=== PATIENT | female | born 1980 | race Caucasian/White ===

== ENCOUNTER → 2020-02-11 | Outpatient (CLI) | payer SELFPAY | LOC: CARD 08:36 | PROVIDERS: ATTEND Internal Medicine Cardiovascular Disease | DX: I35.1 Nonrheumatic aortic (valve) insufficiency (principal) | CPT/HCPCS: 93306; 93351 ==

== ENCOUNTER 2022-07-20 09:02 | Emergency (ER) | payer BC ==
[~2022-07-20] VITALS: Ht 154.9 cm; Wt 65.7 kg
[2022-07-20 09:23] LABS: BASOPHILS # (AUTO) 0.1 10^3/uL (0.0-0.1); BASOPHILS % (AUTO) 1 % (0-10); EOSINOPHILS # (AUTO) 0.1 10^3/uL (0.0-0.3); EOSINOPHILS % (AUTO) 1 % (0-10); HEMATOCRIT 38 % (35-52); HEMOGLOBIN 12.6 g/dL (11.5-16.0); LYMPHOCYTES # (AUTO) 2.3 10^3/uL (1.0-4.0); LYMPHOCYTES % (AUTO) 30 % (12-44); MEAN CORPUSCULAR HEMOGLOBIN 31 pg (25-34); MEAN CORPUSCULAR HGB CONC 33 g/dL (32-36); MEAN CORPUSCULAR VOLUME 93 fL (80-99); MEAN PLATELET VOLUME 10.1 fL (9.0-12.2); MONOCYTES # (AUTO) 0.6 10^3/uL (0.0-1.0); MONOCYTES % (AUTO) 8 % (0-12); NEUTROPHILS # (AUTO) 4.7 10^3/uL (1.8-7.8); NEUTROPHILS % (AUTO) 61 % (42-75); PLATELET COUNT 242 10^3/uL (130-400); WHITE BLOOD COUNT 7.7 10^3/uL (4.3-11.0)
[2022-07-20] MEDS ORDERED: morphine INJ 10 MG/ML 1ML (SYR OR VIAL) IVP STA (09:26)
--- NOTE | 2022-07-20 09:27 | ED Chest Pain ---
General Chief Complaint: Chest Pain Stated Complaint: CHEST PAINS Nursing Triage Note: PT BROUGHT IN BY [facility]. PT STATES SHE WOKE UP WITH CP YESTERDAY MORNING. DESCRIBES A STABBING PAIN. GIVEN 1 NITRO BY EMS WITH NO RELIEF. ALSO COMPLAINING OF SOA AND DIZZINESS. STATES IS FIVE DAYS LATE ON HER PERIOD. Source: patient Exam Limitations: no limitations History of Present Illness Date Seen by Provider: Jul 20, 2022 Time Seen by Provider: 09:17 Initial Comments 42yo female to the ER with a complaint of anterior chest pain - more on the righ t. ONset 24 hours prior. Has never gone away. Feels SOB. no productive cough or fever. Movement and breathing make it worse. No nausea, vomiting. Has never had anything like this before. SHe is not a smoker.. SHe does have a family history of CAD in father at 57yo. She is 5 days late on menses and trying to get . No sick contacts. Very anxious. Denies rashes or injury.heavy lifting. All other ROS reviewed and neg except as stated. Allergies and Home Medications Allergies Coded Allergies: aspirin (Verified Allergy, Unknown, 07/20/22) Patient Home Medication List Home Medication List Reviewed: Yes Review of Systems Review of Systems Constitutional: see HPI EENTM: No Symptoms Reported Respiratory: Shortness of Air Cardiovascular: Chest Pain Gastrointestinal: No Symptoms Reported Genitourinary: No Symptoms Reported Musculoskeletal: no symptoms reported Skin: no symptoms reported Psychiatric/Neurological: No Symptoms Reported All Other Systems Reviewed Negative Unless Noted: Yes Past Qtjfyjj-Uzvbzl-Dlmowi Hx Patient Social History Tobacco Use?: No Use of E-Cig and/or Vaping dev: No Substance use?: No Alcohol Use?: No Pt feels they are or have been: No Physical Exam Vital Signs Vital Signs - First Documented 07/20/22 09:02 Temp 36.6 Pulse 83 Resp 20 B/P (MAP) 128/73 (91) Pulse Ox 98 O2 Delivery Room Air Capillary Refill : Less Than 3 Seconds Height, Weight, BMI Height: '" Weight: lbs. oz. kg; 27.00 BMI Method: General Appearance: No Apparent Distress, WD/WN HEENT: PERRL/EOMI Neck: Normal Inspection Respiratory: Lungs Clear, Normal Breath Sounds, No Accessory Muscle Use, No Respiratory Distress, Other Cardiovascular: Regular Rate, Rhythm, Normal Peripheral Pulses Progress/Results/Core Measures Results/Orders Lab Results Laboratory Tests Test 07/20/22 09:11 Range/Units White Blood Count 7.7 4.3-11.0 10^3/uL Red Blood Count 4.05 3.80-5.11 10^6/uL Hemoglobin 12.6 11.5-16.0 g/dL Hematocrit 38 35-52 % Mean Corpuscular Volume 93 80-99 fL Mean Corpuscular Hemoglobin 31 25-34 pg Mean Corpuscular Hemoglobin Concent 33 32-36 g/dL Red Cell Distribution Width 11.8 10.0-14.5 % Platelet Count 242 130-400 10^3/uL Mean Platelet Volume 10.1 9.0-12.2 fL Immature Granulocyte % (Auto) 0 % Neutrophils (%) (Auto) 61 42-75 % Lymphocytes (%) (Auto) 30 12-44 % Monocytes (%) (Auto) 8 0-12 % Eosinophils (%) (Auto) 1 0-10 % Basophils (%) (Auto) 1 0-10 % Neutrophils # (Auto) 4.7 1.8-7.8 10^3/uL Lymphocytes # (Auto) 2.3 1.0-4.0 10^3/uL Monocytes # (Auto) 0.6 0.0-1.0 10^3/uL Eosinophils # (Auto) 0.1 0.0-0.3 10^3/uL Basophils # (Auto) 0.1 0.0-0.1 10^3/uL Immature Granulocyte # (Auto) 0.0 0.0-0.1 10^3/uL Prothrombin Time 13.2 12.2-14.7 SEC INR Comment 1.0 0.8-1.4 Activated Partial Thromboplast Time 29 24-35 SEC Sodium Level 139 135-145 MMOL/L Potassium Level 3.8 3.6-5.0 MMOL/L Chloride Level 107 98-107 MMOL/L Carbon Dioxide Level 26 21-32 MMOL/L Anion Gap 6 5-14 MMOL/L Blood Urea Nitrogen 14 7-18 MG/DL Creatinine 0.81 0.60-1.30 MG/DL Estimat Glomerular Filtration Rate 93 BUN/Creatinine Ratio 17 Glucose Level 98 70-105 MG/DL Calcium Level 8.8 8.5-10.1 MG/DL Corrected Calcium 8.7 8.5-10.1 MG/DL Magnesium Level 2.0 1.6-2.4 MG/DL Total Bilirubin 0.2 0.1-1.0 MG/DL Aspartate Amino Transf (AST/SGOT) 14 5-34 U/L Alanine Aminotransferase (ALT/SGPT) 14 0-55 U/L Alkaline Phosphatase 62 40-136 U/L Myoglobin 33.7 10.0-92.0 NG/ML Troponin I < 0.028 <0.028 NG/ML Total Protein 6.7 6.4-8.2 GM/DL Albumin 4.1 3.2-4.5 GM/DL Serum Test, Qualitative NEGATIVE NEGATIVE My Orders Orders - DELORIS SANON MD Ekg Tracing (07/20/22 09:09) Cbc With Automated Diff (07/20/22 09:16) Magnesium (07/20/22 09:16) Chest 1 View, Ap/Pa Only (07/20/22 09:16) Comprehensive Metabolic Panel (07/20/22 09:16) Myoglobin Serum (07/20/22 09:16) Protime With Inr (07/20/22 09:16) Partial Thromboplastin Time (07/20/22 09:16) O2 (07/20/22 09:16) Monitor-Rhythm Ecg Trace Only (07/20/22 09:16) Ed Iv/Invasive Line Start (07/20/22 09:16) Troponin I Khris (07/20/22 09:16) Morphine Injection (Morphine Injection (07/20/22 09:26) Ondansetron Injection (Zofran Injectio (07/20/22 09:30) Hcg,Qualitative Serum (07/20/22 09:27) Orphenadrine Inj (Ed Only) (Norflex Inje (07/20/22 10:45) Dexamethasone Injection (Decadron Injec (07/20/22 10:45) Ekg Tracing (07/20/22 11:11) Medications Given in ED Vital Signs/I&O 07/20/22 07/20/22 09:02 12:05 Temp 36.6 Pulse 83 67 Resp 20 12 B/P (MAP) 128/73 (91) 117/87 Pulse Ox 98 98 O2 Delivery Room Air Room Air Blood Pressure Mean: 91 Progress Progress Note : Progress Note Patient seen and evaluated; 42yo with anterior chest pain; worsened with movement and breathing, SOB. Eval includes chest pain "protocol". All of which has been reviewed and is within normal limits. No fondings concerning for ACS in the patient with continuous CP over 6 hours. Neg troponin and reassuring chest xray. Her Heart Score would place her in the "low risk" category (<2) for ACS. She is improved with morphine, muscle relaxers and dexamthasone. (allergy to aspirin therefore toradol not given). Sig other in the room states she does get quite "worked up" as well - lots of anxiety. No concerning findings in HPI/PE for acute PE, dissection, collapsed lung. COnsideration for advanced imaging such as CTA however history and physical examination do not support the need. PAtient discharged home with recommendations for supportive care; return precautions provided. Initial ECG Impression Date: Jul 20, 2022 Initial ECG Impression Time: 09:12 Initial ECG Rate: 67 Initial ECG Rhythm: Normal Sinus Initial ECG Intervals: Normal Initial ECG Intervals MI 115 QRS 94 QTc 413 Initial ECG Impression: Normal Comment NO ectopy; no ST segment elevation or depression; Diagnostic Imaging Diagonstic Imaging: Xray Comments [facility], [place] NAME: ABELARDO BAHENA [facility] REC#: [id number] PT STATUS: DEP ER : 1980 PHYSICIAN: DELORIS SANON MD ADMIT DATE: 07/20/22/ER Signed Date of Exam:07/20/22 CHEST 1 VIEW, AP/PA ONLY Indication: Chest pain. Time of Exam: 9:26 AM No prior studies are available for comparison. Findings: The heart size is normal. The pulmonary vascularity is unremarkable. The lungs are clear. No infiltrate, effusion or pneumothorax is detected. Impression: No acute cardiopulmonary process is detected. Dictated by: Dictated on workstation # [id number] Dict: 07/20/22939 Trans: 07/20/221627 CV [id number] Interpreted by: JESSICA MARKHAM MD Electronically signed by: JESSICA MARKHAM MD 07/20/228 Departure Impression Primary Impression: Chest pain Qualified Codes: R07.9 - Chest pain, unspecified Additional Impression: Anxiety about health Disposition: HOME, SELF-CARE Condition: Stable Departure-Patient Inst. Decision time for Depature: 11:38 Referrals: [facility]LOCAL PHYSICIAN (PCP) Primary Care Physician Patient Instructions: Chest Pain That Is Not Caused by the Heart (DC) Add. Discharge Instructions: Drink plenty of fluids to stay well hydrated. Get good nutrition and sleep. Take tylenol/acetaminophen 2 extra strength tablets every 6 hours as needed for pain. If you develop worse pain pain, expecially with fever, shortness of breath or cough, return to the Emergency Department for re-evaluation. Follow up with a primary care doctor. DELORIS SANON MD Jul 20, 2022 09:27
[2022-07-20] MEDS ORDERED: ONDANSETRON 4 MG/2 ML (SDV) Z0FRAN IVP ONE (09:30)
[2022-07-20 09:34] LABS: ALBUMIN 4.1 GM/DL (3.2-4.5); POTASSIUM 3.8 MMOL/L (3.6-5.0)
[2022-07-20 09:35] LABS: CALCIUM 8.8 MG/DL (8.5-10.1); PROTHROMBIN TIME PATIENT 13.2 SEC (12.2-14.7)
[2022-07-20 09:37] LABS: TOTAL PROTEIN 6.7 GM/DL (6.4-8.2)
[2022-07-20 09:38] LABS: BILIRUBIN,TOTAL 0.2 MG/DL (0.1-1.0)
[2022-07-20 09:40] LABS: CREATININE SERUM 0.81 MG/DL (0.60-1.30)
--- NOTE | 2022-07-20 09:44 | Diagnostic Imaging Report ---
Indication: Chest pain. Time of Exam: 9:26 AM No prior studies are available for comparison. Findings: The heart size is normal. The pulmonary vascularity is unremarkable. The lungs are clear. No infiltrate, effusion or pneumothorax is detected. Impression: No acute cardiopulmonary process is detected. Dictated by: Dictated on workstation # [id number]
[2022-07-20] MEDS ORDERED: ORPHENADRINE 60 MG/2 ML (NORFLEX) AMP (ED ONLY) IV ONE (10:45)
[2022-07-20 12:05] VITALS: BP 117/87
== END 2022-07-20 12:05 | disposition home or self-care (01) ==
LOC: EDUNIT# 09:07 → ER 09:09
DX: R07.89 Other chest pain (principal); F06.4 Anxiety disorder due to known physiological condition
CPT/HCPCS: 36415; 71045; 80053; 83735; 83874; 84484; 84703; 85025; 85610; 85730; 93005; 93041